=== PATIENT | female | born 1980 | race Two or more races ===

== ENCOUNTER → 2023-08-28 | Emergency (ER) | payer OTHER ==
[~2023-08-28] VITALS: Ht 160 cm; Wt 63.5 kg
[~2023-08-28] MED LIST: FLONASE ALLERG9.9 ML NASAL; TUSNEL DM LIQU473 ML PO; ZYRTEC10 M3 PO
[2023-08-28 10:55] LABS: HEMATOCRIT 35.4 % (36.0-45.00); HEMOGLOBIN 11.7 g/dL (12.0-15.00); MEAN CELL VOLUME 83.4 fL (80.00-100.00); MEAN CORPUSCULAR HEMOGLOBIN 27.5 pg (27.00-32.0); PLATELET COUNT 585 K/uL (150-450); RED BLOOD COUNT 4.24 M/uL (4.00-6.00); RED CELL DISTRIBUTION WIDTH 15.2 % (11.5-14.5)
[2023-08-28 11:17] LABS: CALCIUM 9.3 mg/dL (8.5-10.1); CREATININE SERUM 0.65 mg/dL (0.55-1.02); GFR 98.57; POTASSIUM 4.01 mEq/L (3.5-5.1)
== END | disposition home or self-care (01) ==
LOC: ER 07:24
PROVIDERS: General Practice
DX: B34.9 Viral infection, unspecified (principal); Z20.822 Contact with and (suspected) exposure to COVID-19